=== PATIENT | female | born 1935 | race Caucasian/White ===

== ENCOUNTER 2019-11-15 05:40 | Inpatient (IN) | payer MEDICARE, OTHER ==
[2019-11-15] MEDS ORDERED: DIPH,PERTUS(ACELL)TETVAC-LF 0.5 ML VIAL IM ONE (06:10)
--- NOTE | 2019-11-15 06:22 | ED ---
Fall HPI - General Chief Complaint: Fall Stated Complaint: Fall Time Seen by Provider: 11/15/19 06:00 Source: patient, RN notes reviewed Mode of arrival: ambulatory Limitations: no limitations - History of Present Illness Initial Comments: This is an 84-year-old female presents emergency Department chief complaint trip and fall. Patient states she fell getting out of bed. Patient struck her head on a dresser. Patient is unsure when her last tetanus was. Patient has a laceration to the occipital region. Patient denies any blurred vision or focal weakness. Patient reportedly does have some baseline confusion she is at her normal baseline. Patient denies any extremity injury patient states she takes Coumadin she does not remember the last time she had it checked. She states that she took her last dose at 10 PM last night. - Related Data Allergies Allergy/AdvReac Type Severity Reaction Status Date / Time codeine Allergy Unknown Verified 11/15/19 05:56 Review of Systems ROS Statement: Those systems with pertinent positive or pertinent negative responses have been documented in the HPI. ROS Other: All systems not noted in ROS Statement are negative. Past Medical History History of Any Multi-Drug Resistant Organisms: None Reported Smoking Status: Never smoker Past Alcohol Use History: None Reported Past Drug Use History: None Reported General Exam Limitations: no limitations General appearance: alert, in no apparent distress Head exam: Present: atraumatic, normocephalic. Absent: normal inspection (Procedure laceration noted) Eye exam: Present: normal appearance, PERRL, EOMI. Absent: scleral icterus, conjunctival injection, periorbital swelling ENT exam: Present: normal exam, normal oropharynx, mucous membranes moist, TM's normal bilaterally, normal external ear exam Neck exam: Present: normal inspection, full ROM. Absent: tenderness, meningismus, lymphadenopathy Respiratory exam: Present: normal lung sounds bilaterally. Absent: respiratory distress, wheezes, rales, rhonchi, stridor Cardiovascular Exam: Present: regular rate, normal rhythm, normal heart sounds. Absent: systolic murmur, diastolic murmur, rubs, gallop, clicks GI/Abdominal exam: Present: soft, normal bowel sounds. Absent: distended, tenderness, guarding, rebound, rigid Neurological exam: Present: alert, oriented X3, CN II-XII intact Skin exam: Present: warm, dry, intact, normal color. Absent: rash Course Vital Signs 11/15/19 11/15/19 11/15/19 05:42 05:52 07:34 Temperature 98.0 F 98 F Pulse Rate 65 64 Respiratory 16 18 16 Rate Blood Pressure 133/106 149/78 O2 Sat by Pulse 98 97 Oximetry Procedures - Laceration Laceration #1 Consent Obtained: verbal consent Indication: laceration Site: scalp Size (cm): 4 Description: linear Depth: simple, single layer Anesthetic Used: lidocaine 1%, with epi Anesthesia Technique: local infiltration Amount (mls): 5 Pre-repair: wound explored, irrigated extensively, deep structures intact Size of Sutures: other (Dermal davin) Number of Sutures: 7 Patient Tolerated Procedure: well, no complications Medical Decision Making - Medical Decision Making 84-year-old female presented for fall, head injury. Patient CT was obtained of the head and neck. There is a questionable calcified area versus possible bleeding. Patient is neurologically intact and at her normal baseline. We did discuss this with the radiologist and felt that could be constipation. Patient HE WAS CONTACTED. WE ALSO DID DISCUSS CASE WITH SHEET WAS PATIENT WILL BE OBSERVED WITH REPEAT CT IN THE MORNING. Patient will have neuro checks. Patient was given FFP and vitamin K for her Coumadin. - Lab Data Lab Results 11/15/19 Range/Units 06:15 PT 27.0 H (9.0-12.0) sec INR 2.8 H (<1.2) Disposition Clinical Impression: Fall, Scalp laceration, Head injury Disposition: ADMITTED IP TO THIS HOSP Condition: Fair Referrals: Ashtyn Cano MD [Primary Care Provider] - 1-2 days
[2019-11-15 06:29] LABS: INR 2.8 (<1.2)
[2019-11-15] MEDS ORDERED: ACETAMINOPHEN TAB 325 MG TAB PO STA (06:43)
--- NOTE | 2019-11-15 07:47 | CT ---
EXAM: CT Head Without Intravenous Contrast CLINICAL HISTORY: ITS.REASON CT Reason: pain Fall this morning. Laceration to back of head. TECHNIQUE: Axial computed tomography images of the head/brain without intravenous contrast. CTDI is 45.2 mGy and DLP is 943 mGy-cm. This CT exam was performed using one or more of the following dose reduction techniques: automated exposure control, adjustment of the mA and/or kV according to patient size, and/or use of iterative reconstruction technique. COMPARISON: No relevant prior studies available. FINDINGS: Brain: Small hyperdense focus along the anterior falx. Series 201 image 30. May relate to dural thickening and calcifications, as seen elsewhere, however small focus of subdural hematoma at this location not excluded. Enlarged ventricles and sulci consistent with volume loss. Encephalomalacia in bilateral MCA territories. Ventricles: See above. Bones/joints: Unremarkable. No acute fracture. Soft tissues: Right posterior parietal scalp swelling/hematoma. Sinuses: Unremarkable as visualized. No acute sinusitis. Mastoid air cells: Unremarkable as visualized. No mastoid effusion. IMPRESSION: 1. Small hyperdense focus along the anterior falx. May relate to dural thickening and calcifications, as seen elsewhere, however small focus of subdural hematoma at this location not excluded. Correlate with priors if available or consider a follow-up. 2. Right posterior parietal scalp swelling/hematoma. EXAM: CT Cervical Spine Without Intravenous Contrast CLINICAL HISTORY: ITS.REASON CT Reason: pain Fall this morning. Laceration to back of head. TECHNIQUE: Axial computed tomography images of the cervical spine without intravenous contrast. CTDI is 11.7 mGy and DLP is 320.5 mGy-cm. This CT exam was performed using one or more of the following dose reduction techniques: automated exposure control, adjustment of the mA and/or kV according to patient size, and/or use of iterative reconstruction technique. COMPARISON: No relevant prior studies available. FINDINGS: Vertebrae: Unremarkable. No acute fracture. Discs/spinal canal/neural foramina: Multilevel degenerative changes. Mild anterolisthesis of C3 on C4 and C4 on C5. Varying degrees of mild to moderate central canal and foraminal stenoses. There may be severe central canal stenosis at C2-3 where there are degenerative disc changes, facet and ligamentum flavum hypertrophy. Soft tissues: Unremarkable. IMPRESSION: 1. No evidence of acute fracture or malalignment. 2. Multilevel degenerative changes. Query severe central canal stenosis at C2-3 . Correlate and consider MRI if there is further concern. <MYCVCSECTION> Communications: 11/15/19 08:00 Verify Receipt Verified receipt with EMELY Lopez on 11/14 08:02 (-04:00)
[2019-11-15] MEDS ORDERED: PHYTONADIONE 10 MG in SODIUM CHLORIDE 0.9% 50 ML IVPB STA (08:08)
[2019-11-15] MEDS ORDERED: NALOXONE 0.4 MG/ML 1 ML VIAL IV PRN (09:45)
[2019-11-15] MEDS ORDERED: SODIUM CHLORIDE 0.9% 1,000 ML IV SCH (09:45)
[2019-11-15 10:13] LABS: Basophils % (A) 0 %; Eosinophils # (A) 0.2 k/uL (0-0.7); Eosinophils % (A) 2 %; HCT 37.4 % (34.0-46.0); HGB 12.3 gm/dL (11.4-16.0); Lymphocytes # (A) 1.3 k/uL (1.0-4.8); Lymphocytes % (A) 13 %; MCH 29.2 pg (25.0-35.0); MCHC 32.8 g/dL (31.0-37.0); Mean Platelet Volume 8.3; Monocytes # (A) 0.6 k/uL (0-1.0); Monocytes % (A) 6 %; Neutrophils % (A) 78 %; Platelet Count 232 k/uL (150-450); RDW 13.4 % (11.5-15.5); WBC 10.2 k/uL (3.8-10.6)
[2019-11-15 10:20] LABS: Albumin 3.3 g/dL (3.5-5.0); Calcium 9.1 mg/dL (8.4-10.2); Potassium 4.3 mmol/L (3.5-5.1); Total Bilirubin 0.8 mg/dL (0.2-1.3); Total Protein 5.7 g/dL (6.3-8.2)
[2019-11-15 13:26] LABS: INR 1.4 (<1.2); Prothrombin Time 14.2 sec (9.0-12.0)
[2019-11-15] MEDS: ACETAMINOPHEN TAB 325 MG TAB PO PRN (14:23)
[2019-11-15] MEDS ORDERED: PHYTONADIONE 5 MG in SODIUM CHLORIDE 0.9% 50 ML IVPB STA (15:43)
[2019-11-15] MEDS ORDERED: ALBUTEROL NEBULIZED 2.5 MG/3 ML INHALATION PRN (16:14)
[2019-11-15] MEDS ORDERED: guaiFENesin-DM 100-10MG/5ML 10 ML CUP PO PRN (16:14)
[2019-11-15] MEDS ORDERED: NYSTATIN 100,000UNIT/GM CREAM 30 GM TUBE TOPICAL PRN (16:14)
[2019-11-15] MEDS ORDERED: ALPRAZolam 0.25 MG TAB PO PRN (16:18)
--- NOTE | 2019-11-15 17:09 | P.CNNES ---
History of Present Illness Consult date: 11/15/19 Requesting physician: Nancy Lucas Reason for Consult: Subdural hematoma History of Present Illness: Patient is a 84-year-old female with history of dementia, atrial fibrillation on Coumadin, aspirin 81 mg, admitted to the ER after she tripped and fell. She fell getting out of the bed. Patient struck her head on a dresser. Patient states that she was getting up to go potty, when she started falling, grabbed her walker and then down, hitting the back of her head on the dresser. Patient had a laceration to the occipital region. Patient denies any loss of consciousness. There was no tongue bite or loss of control of urine. Patient denied any blurred vision or focal weakness. Patient does have history of bas catherine confusion, which is not any worse. Patient stated that she does fall very occasionally, perhaps couple times a year, due to her "stupidity". She states that when she was sitting in the chair, reaching to get something and went over. She states that "this is what she meant by stupidity". Computed tomography scan of the head showed small hyperdense focus along the anterior falx. May related to dural thickening and calcification as seen elsewhere, however small focus of subdural hematoma at this location not excluded. Correlate with prior films if available. Right posterior parietal scalp swelling/hematoma. CT of the cervical spine showed no evidence of acute fracture or basilar alignment. Multilevel degenerative changes. Very severe central canal stenosis at C2 3. Consider MRI if needed. Patient's INR was 2.8 on arrival. Patient has received vitamin K, and today it is 1.4. Her BUN is 22, creatinine 0.86. Liver functions are normal. CBC normal. Review of Systems Patient denies any pain, problem with the vision, numbness tingling. Denies chest pain shortness of breath wheezing cough. Denies diplopia, loss of vision. She does have significant hearing loss. Denies any abdominal pain nausea vomiting diarrhea. 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 History of Any Multi-Drug Resistant Organisms: None Reported Past Surgical History: Section Additional Past Surgical History / Comment(s): Bilateral cataract surgery, colonoscopy. Past Anesthesia/Blood Transfusion Reactions: No Reported Reaction Additional Past Anesthesia/Blood Transfusion Reaction / Comment(s): Pt believes she had a blood transfusion many years ago and no reaction. Past Psychological History: Depression Additional Psychological History / Comment(s): Pt resides at [facility]. She uses a walker to ambulate. She needs assitance with dressing. She can feed herself. Smoking Status: Never smoker Past Alcohol Use History: None Reported Past Drug Use History: None Reported - Past Family History Father Family Medical History: CVA/TIA Additional Family Medical History / Comment(s): Father of a CVA. Mother Family Medical History: Congestive Heart Failure (CHF) Medications and Allergies Home Medications Medication Instructions Recorded Confirmed Type Acetaminophen Tab [Tylenol Tab] 1,000 mg PO Q6HR PRN 11/15/19 11/15/19 History Albuterol Nebulized [Ventolin 2.5 mg INHALATION RT-QID PRN 11/15/19 11/15/19 History Nebulized] Aspirin EC [Ecotrin Low Dose] 81 mg PO DAILY@69911/15/19 11/15/19 History Atorvastatin [Lipitor] 20 mg PO HS@189911/15/19 11/15/19 History Budesonide/Formoterol Fumarate 2 puff INHALATION RT-BID@07,189911/15/19 11/15/19 History [Symbicort 160-4.5 Mcg Inhaler] Carvedilol [Coreg] 3.125 mg PO BID@07,189911/15/19 11/15/19 History Donepezil [Aricept] 5 mg PO HS@189911/15/19 11/15/19 History Famotidine [Pepcid] 20 mg PO BID@07,189911/15/19 11/15/19 History Furosemide [Lasix] 80 mg PO DAILY@69911/15/19 11/15/19 History Lisinopril [Zestril] 5 mg PO DAILY@69911/15/19 11/15/19 History Nystatin 100,000Unit/gm Cream 1 applic TOPICAL BID PRN 11/15/19 11/15/19 History [Mycostatin Cream] Oxybutynin ER [Ditropan Xl] 10 mg PO HS@1900 11/15/19 11/15/19 History Pramipexole [Mirapex] 1 mg PO HS@1900 11/15/19 11/15/19 History Tussin Dm 10 ml PO Q4H PRN 11/15/19 11/15/19 History Warfarin [Coumadin] 2.5 mg PO SUTUWEFRSA@1900 11/15/19 11/15/19 History Warfarin [Coumadin] 5 mg PO MOTH@1900 11/15/19 11/15/19 History Allergies Allergy/AdvReac Type Severity Reaction Status Date / Time codeine Allergy Unknown Verified 11/15/19 05:56 Physical Examination - Vital Signs Vital Signs: Vital Signs Temp Pulse Pulse Resp BP BP Pulse Ox 11/15/19 14:57 97.9 F 78 16 131/65 97 11/15/19 11:20 97.3 F L 70 16 151/77 98 11/15/19 10:55 97.3 F L 70 16 151/77 98 11/15/19 10:25 98 F 75 16 139/70 11/15/19 10:15 98 F 85 16 143/68 11/15/19 09:45 97.8 F 69 16 143/68 97 11/15/19 07:34 98 F 64 16 149/78 97 11/15/19 05:52 65 18 133/106 98 11/15/19 05:42 98.0 F 16 Intake and Output 11/15/19 11/15/19 11/15/19 06:59 14:59 22:59 Intake Total 301 Balance 301 Intake: Blood Product 301 Ffp 24 Cpd Unit 301 [id number] Other: # Voids 1 Weight 72.575 kg 72.575 kg On examination patient is an elderly female, in no distress. Patient is alert and awake, fully oriented. She knows it is November and the year is 2019 and that she is in [facility] in [facility]. Knows name of the current president. Her speech and language functions are normal. She is very hard of hearing. On cranial nerve examination pupils are round and reacting to light, visual wilkinson are full to confrontation, extraocular muscles intact with no nystagmus. Face is symmetric and tongue protrudes the midline. Palatal elevation and sensation normal. On muscle strength testing patient has bilateral shoulder weakness, right more than left, likely related to arthritis, although patient denies any pain in the shoulders. On muscle strength testing the biceps, triceps and chopper feeder is normal. In the lower extremities hip flexion is 5 to 5-bilaterally. Knee extension is normal. Ankle dorsiflexion 5/5=, toe e xtension 4+5-/3-3+ inversion 5/5, Perronei, 5/4+ reflexes are diminished and plantars are flat. Sensory touch is equal. Patient has some ataxia for [id number] on either side. Tone and bulk of muscles normal. There is possible carotid bruit bilaterally. S1 and S2 audible, peripheral pulses p resent no edema. Results - Laboratory Findings CBC and BMP: 11/15/19 08:26 11/15/19 08:26 Abnormal Lab Findings: Abnormal Labs 11/15/19 11/15/19 11/15/19 06:15 08:26 08:26 Neutrophils # 8.0 H PT 27.0 H INR 2.8 H Chloride 108 H BUN 22 H Total Protein 5.7 L Albumin 3.3 L 11/15/19 12:32 Neutrophils # PT 14.2 H INR 1.4 H Chloride BUN Total Protein Albumin Assessment and Plan Assessment: * 84-year-old female, admitted with a fall of unclear etiology, while trying to get up to go to bathroom, suffering from laceration in the occipital region. CT head showed possibility of anterior falx subdural hematoma. No mass effect or midline shift. * Patient has mild distal left leg weakness, in peroneal distribution, which may predispose her to tripping/falling. * Atrial fibrillation, on anticoagulation with Coumadin. INR was therapeutic 2.8 on arrival. Status post administration of vitamin K for possible SDH. Plan: * We will repeat computed tomography scan of head in the morning, to follow-up on possible subdural hematoma. * CT of the cervical spine revealed evidence of possible cervical spinal stenosis. We will check MRI of the cervical spine. * Carotid Doppler to rule out carotid stenosis. * Coumadin has been held because of possibility of subdural hematoma. We will clear neurologically for anticoagulation, if the subdural hematoma remains stable. * We will check B12, folate and TSH.
--- NOTE | 2019-11-15 17:30 | XR ---
EXAMINATION TYPE: XR chest 1V portable DATE OF EXAM: 11/15/2019 CLINICAL HISTORY: Recent fall injury with CHF and weakness. TECHNIQUE: Single AP portable frontal upright view of the chest is obtained. COMPARISON: Prior chest x-ray November 29, 2011. FINDINGS: There is chronic parenchymal change without suspicious new focal air space opacity, pleura l effusion, or pneumothorax seen. The cardiac silhouette size remains enlarged without atrophic hankins ge in the thoracic aorta. The osseous structures remain demineralized. High riding right humeral he ad suggests chronic rotator cuff tear. Degenerative changes bilateral shoulders are seen. IMPRESSION: Chronic parenchymal changes and cardiomegaly without acute pulmonary process.
[2019-11-15] MEDS: LISINOPRIL 5 MG TAB PO SCH (17:55)
[2019-11-15] MEDS: FUROSEMIDE 80 MG TAB PO SCH (17:55)
--- NOTE | 2019-11-15 18:04 | HP ---
HISTORY AND PHYSICAL DATE OF SERVICE: 11/15/2019 CHIEF COMPLAINT: Fall and scalp injury. HISTORY OF PRESENT ILLNESS: This 84-year-old woman with a past medical history of multiple medical problems including atrial fibrillation asthma, CVA, TIA, dementia, GERD, hypertension, DJD, depression, being followed by [facility] in the outpatient, apparently trying to get up from the bed today this morning and the patient fell down hitting the dresser and sustained injury on the scalp and injury on the back which was associated with significant bleeding. Patient came to [facility]. CT scan of the head showed small hyperdense focus along the anterior falx, may be related to dural thickening calcification but a small focus subdural hematoma cannot be ruled out. The right posterior parietal scalp swelling and hematoma was also noted. The ER physician called the legal guardian who was not very insistent on transferring the patient and the patient was transferred with neurology consultation at this time. Neurology has been consulted and recommended continue with neuro checks and repeat CT scan tomorrow morning. Otherwise, the patient also had significant bleeding and INR was elevated. The patient was given vitamin K 10 mg IV and fresh frozen plasma and currently still there is soaking of the blood in the bedsheet, so I recommended repeat INR which is 1.4, and another dose of vitamin K and as well as fresh frozen plasma is also recommended. There is no history of any fever, rigors. No history of headache, loss of consciousness, seizures at this time. PAST MEDICAL HISTORY: Atrial fibrillation, asthma, CVA, TIA, dementia, GERD, hypertension, hyperlipidemia, history of depression. HOME MEDICATIONS: 1. Tylenol p.r.n. 2. Tussin p.r.n. 3. Nystatin 1 application b.i.d. p.r.n. 4. Coumadin 5 mg Friday and . 5. Ventolin 2.5 mg q.i.d. p.r.n. 6. Coumadin 2.5 mg Friday, Friday, Friday, Friday, Friday. 7. Symbicort 2 puffs b.i.d. 8. Mirapex 1 gm q.h.s. 9. Ditropan XL 10 mg q.h.s. 10.Zestril 5 mg p.o. daily. 11.Lasix 80 mg p.o. daily. 12.Pepcid 20 mg p.o. b.i.d. 13.Aricept 5 mg q.h.s. 14.Coreg 3.125 mg p.o. b.i.d. 15.Lipitor 20 mg q.h.s. 16.Ecotrin 81 mg p.o. daily. ALLERGIES: CODEINE. FAMILY HISTORY: History of CVA and TIA in the family. SOCIAL HISTORY: No history of smoking. No history of alcohol intake. REVIEW OF SYSTEMS: ENT As mentioned earlier. CARDIOVASCULAR No angina or palpitations. RESPIRATORY No cough, no hemoptysis. GI No nausea, vomiting, or diarrhea. No dysuria. NERVOUS As mentioned earlier. ALLERGY/IMMUNOLOGY No asthma or hayfever. MUSCULOSKELETAL As mentioned earlier. HEMATOLOGY/ONCOLOGY As mentioned earlier. ENDOCRINE As mentioned earlier. SKIN Negative. CONSTITUTIONAL As mentioned earlier. PSYCHIATRY As mentioned earlier. PHYSICAL EXAMINATION: Alert and oriented x3. Pulse 78, blood pressure 130/60, respiration 16, temperature 97.9, pulse ox 97% on room air. HEENT: Conjunctivae normal. Oral mucosa moist. NECK: No jugular venous distention. No lymph node enlargement. CARDIOVASCULAR: S1, S2. RESPIRATORY: Diminished breath sounds at the bases. No rhonchi, no crackles. ABDOMEN: Soft, nontender. No mass palpable. LEGS: No edema, no swelling. NERVOUS SYSTEM: Higher functions mentioned earlier. Moves all four limbs. No focal deficits. LYMPHATICS: No lymph node in neck or axilla. SKIN: No rash. JOINTS: No active deforming arthropathy. LABS: WBC 10.2, hemoglobin 12.3, and INR is 2.8 and 1.4. Sodium 130 potassium 4.3. The BUN is 22, creatinine 0.86. ASSESSMENT: 1. Fall and scalp injury and possible mild acute subdural hematoma, possibly dural thickening or calcification. 2. Coumadin monitoring and scalp bleeding. 3. History of atrial fibrillation. 4. History of asthma. 5. Chest pain, angina. 6. History of cerebrovascular accident, transient ischemic attack. 7. Dementia. 8. Gastroesophageal reflux disease. 9. Hypertension. 10.Hyperlipidemia. 11.History of degenerative joint disease. 12.History of cerebrovascular accident with some right-sided weakness. 13.History of overactive bladder. 14.History of bilateral cataracts. 15.History of depression. 16.FULL CODE. RECOMMENDATION: In this 84-year-old woman who presented with multiple complex medical issues, at this time I recommend to continue current medications. As mentioned earlier, we will monitor PT, INR closely and 2nd dose of vitamin K and FFP has been recommended. Neurology consultation. Repeat CT scan in the morning. Neuro checks closely. Neurovascular workup. Otherwise, continue the rest of medications. Hold antiplatelet agents and anticoagulants. The prognosis is extremely guarded because of multiple complex medical issues. Further recommendations to follow and the patient remains full code. Guarded prognosis. Further recommendations to follow. MMODL / IJN: [id number] /
--- NOTE | 2019-11-15 18:32 | US ---
EXAMINATION TYPE: US carotid duplex BILAT DATE OF EXAM: 11/15/2019 COMPARISON: NONE CLINICAL HISTORY: Carotid bruit, falls. headache, falls, bruit EXAM MEASUREMENTS: RIGHT: Peak Systolic Velocity (PSV) cm/sec ----- Right CCA: 68.6 ----- Right ICA: 151.2 ----- Right ECA: 149.6 ICA/CCA ratio: 2.2 RIGHT: End Diastole cm/sec ----- Right CCA: 15.4 ----- Right ICA: 23.6 ----- Right ECA: 12.3 LEFT: Peak Systolic Velocity (PSV) cm/sec ----- Left CCA: 37.4 ----- Left ICA: 77.6 ----- Left ECA: 80.9 ICA/CCA ratio: 2.1 LEFT: End Diastole cm/sec ----- Left CCA: 13.2 ----- Left ICA: 30.3 ----- Left ECA: 0.0 VERTEBRALS (direction of flow): Right Vertebral: Antegrade Left Vertebral: Antegrade Rhythm: Normal Suboptimal study due to patient's large body habitus. Fairly severe plaque right carotid bulb level p resent on grayscale images with more mild to moderate plaquing left carotid bulb. Increased peak syst olic velocity right internal and external carotid artery with abnormal ratio. IMPRESSION: Asymmetric swdzchcu-ad-dyuiam right plaque with elevated peak systolic velocity and rati o, significant stenosis estimated 50-69% proximal right internal carotid artery cannot be excluded. F urther investigation with CTA or MRA of the neck is advised to better evaluate and characterize. Criteria for Assigning % of Stenosis / Diameter reduction (Estimation based on the indirect measurements of the internal carotid artery velocities (ICA PSV). 1. Normal (no stenosis)=ICA PSV < 125 cm/s: ratio < 2.0: ICA EDV<40 cm/s. 2. Less than 50% stenosis=ICA PSV < 125 cm/s: ratio < 2.0: ICA EDV<40 cm/s. 3. 50 to 69% stenosis=ICA PSV of 125 to 230 cm/s: ration 2.0 ? 4.0: ICA EDV 40-100 cm/s. 4. Greater than 70% stenosis to near occlusion= ICA PSV > 230 cm/s: ratio > 4.0: ICA EDV > 100 cm/s. 5. Near occlusion= ICA PSV velocities may be low or undetectable: variable ratio and ICA EDV. 6. Total occlusion=unable to detect flow.
[2019-11-15] MEDS: OXYBUTYNIN 10 MG TAB.ER.24 PO SCH (19:10)
[2019-11-15] MEDS: PRAMIPEXOLE 1 MG TAB PO SCH (19:10)
[2019-11-15] MEDS: CARVEDILOL 3.125 MG TAB PO SCH (19:10)
[2019-11-15] MEDS: DONEPEZIL 5 MG TAB PO SCH (19:10)
[2019-11-15] MEDS: ATORVASTATIN 20 MG TAB PO SCH (19:10)
[2019-11-15] MEDS: SYMBICORT 160-4.5 MCG INHALER INHALATION SCH (20:59)
[2019-11-16 01:39] LABS: Folate, Serum 16.4 ng/mL
[2019-11-16] MEDS: FUROSEMIDE 80 MG TAB PO SCH (05:49)
[2019-11-16] MEDS: LISINOPRIL 5 MG TAB PO SCH (05:49)
[2019-11-16] MEDS: CARVEDILOL 3.125 MG TAB PO SCH ×2 (05:49→21:17)
[2019-11-16 06:38] LABS: Appearance,Urine Turbid (Clear); Bacteria,Urine Few /hpf; Bilirubin,Urine Negative (Negative); Blood,Urine Small (Negative); Color,Urine Yellow; Glucose,Urine (UA) Negative (Negative); Ketones,Urine Negative (Negative); Leukocyte Esterase,Urine Large (Negative); Nitrite,Urine Positive (Negative); Protein,Urine 1+ (Negative); RBC,Urine 45 /hpf (0-5); Squamous Epithelial Cell,Urine 4 /hpf (0-4); Urobilinogen,Urine <2.0 mg/dL (<2.0); WBC,Urine >182 /hpf (0-5)
[2019-11-16] MEDS: PANTOPRAZOLE 40 MG TABLET PO SCH (08:28)
[2019-11-16] MEDS: SYMBICORT 160-4.5 MCG INHALER INHALATION SCH ×2 (09:18→22:09)
[2019-11-16 09:27] LABS: Basophils % (A) 0 %; Eosinophils # (A) 0.1 k/uL (0-0.7); Eosinophils % (A) 2 %; HGB 10.3 gm/dL (11.4-16.0); Lymphocytes # (A) 1.5 k/uL (1.0-4.8); Lymphocytes % (A) 22 %; MCH 29.1 pg (25.0-35.0); MCHC 32.3 g/dL (31.0-37.0); Mean Platelet Volume 7.4; Monocytes # (A) 0.4 k/uL (0-1.0); Monocytes % (A) 5 %; Neutrophils # (A) 4.9 k/uL (1.3-7.7); Neutrophils % (A) 70 %; Platelet Count 226 k/uL (150-450); RBC 3.55 m/uL (3.80-5.40); RDW 13.5 % (11.5-15.5)
[2019-11-16 09:41] LABS: Potassium 4.2 mmol/L (3.5-5.1)
--- NOTE | 2019-11-16 09:44 | CT ---
EXAMINATION TYPE: CT brain wo con DATE OF EXAM: 11/16/2019 COMPARISON: 11/15/2019 CT brain and cervical spine HISTORY: Patient poor historian. Altered mental status. CT DLP: 1054.2 mGycm Automated exposure control for dose reduction was used. TECHNIQUE: CT scan of the head is performed without contrast. FINDINGS: Biparietal encephalomalacia from prior infarcts are seen. There is a posterior right vanesa etal scalp hematoma measuring 1 cm in greatest thickness with overlying davin. There is no acute in tracranial hemorrhage or midline shift identified. There is diffuse ventricular and sulcal prominence consistent with diffuse age-related cerebral atrophy. There is low-attenuation in the periventricul ar white matter consistent with chronic small vessel ischemic change. The globes are intact and the visualized sinuses are clear. IMPRESSION: 1. No acute intracranial hemorrhage or midline shift. The previously seen punctate focus of possible of subdural hemorrhage has resolved. 2. Biparietal encephalomalacia from prior infarcts. There is diffuse age-related cerebral atrophy and chronic small vessel ischemic change noted. 3. Right posterior parietal scalp hematoma measuring 1.0 cm in greatest thickness with overlying skin davin.
[2019-11-16 09:46] LABS: Partial Thromboplastin Time 23.8 sec (22.0-30.0); Prothrombin Time 10.2 sec (9.0-12.0)
--- NOTE | 2019-11-16 11:19 | P.CRDCN ---
History of Present Illness History of present illness: HISTORY OF PRESENTING ILLNESS This is a pleasant 84-year-old female past medical history significant for CVA with right-sided weakness, chronic a-fib on coumadin, dementia, hyperte nsion and dyslipidemia. 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 She does have some baseline confusion. Information is obtained from the medical record and nursing staff. She lives at an [facility] home. She states she got up out of bed yesterday morning and Oh she was on the ground. She states she did not pass out. She denies feeling dizzy or lightheaded prior to falling. She denies chest pain shortness of breath or palpitations. CT imaging of the brain reveals small hyperdense focus along the anterior falx related to dural thickening and calcifications small focus of subdural hematoma at this location is not entirely excluded. Repeat CT of the brain this morning reveals no acute intracranial hemorrhage or midline shift the previously seen area of possible hemorrhage has resolved. Coumadin and aspirin have been held since admission. The patient is seen and examined sitting up in no acute distress. She denies symptoms of headache, chest pain, dizziness, shortness of breath or palpitations. No EKG obtained on admission. Chest x-ray on admission reveals chronic parenchymal changes and cardiomegaly with no acute cardiopulmonary process. Laboratory data reviewed, WBC 7, hemoglobin on admission 12.3 repeat today 10.3, platelets 226, INR on admission 2.8 after vitamin K administration this morning 1.0, sodium 140, potassium 4.2, creatinine 0.89. Current daily cardiac medications include aspirin 81 mg daily, Coumadin, atorvastatin 20 mg at bedtime, carvedilol 3.125 mg twice a day, Lasix 80 mg daily and lisinopril 5 mg daily. REVIEW OF SYSTEMS At the time of my exam: CONSTITUTIONAL: Denies fever or chills. CARDIOVASCULAR: Denies chest pain, shortness of breath, orthopnea, PND or palpitations. RESPIRATORY: Denies cough. GASTROINTESTINAL: Denies abdominal pain, diarrhea, constipation, nausea or vomiting. MUSCULOSKELETAL: Denies myalgias. NEUROLOGIC: Denies numbness, tingling or weakness. ENDOCRINE: Denies fatigue, weight change, polydipsia or polyurina. GENITOURINARY: Denies burning, hematuria or urgency with micturation. HEMATOLOGIC: Denies history of anemia or bleeding. PHYSICAL EXAMINATION Blood pressure 152/61 heart rate 79 afebrile and maintaining oxygen saturation on room air. CONSTITUTIONAL: No apparent distress. HEENT: Head is normocephalic. Pupils are equal, round. Sclerae anicteric. Mucous membranes of the mouth are moist. No JVD. No carotid bruit. CHEST EXAMINATION: Lungs are clear to auscultation. No chest wall tenderness is noted on palpation or with deep breathing. HEART EXAMINATION: Irregular rate and rhythm. S1, S2 heard. Systolic ejection murmur at the left sternal border, gallops or rub. ABDOMEN: Soft, nontender. Positive bowel sounds. EXTREMITIES: 2+ peripheral pulses, no lower extremity edema and no calf tenderness. NEUROLOGIC EXAMINATION: Patient is awake, alert and oriented x3. ASSESSMENT Fall from standing, sounds orthostatic in nature. No LOC Subdural hematoma noted on initial admission CT repeat today shows resolution Chronic atrial fibrillation on coumadin History of CVA Hypertension Dyslipidemia Dementia PLAN Obtain 2D echocardiogram and doppler study to assess cardiac structure and function. Agree with discontinuation of coumadin and would recommend not resuming on discharge. No indication for aspirin from a cardiac perspective. Obtain baseline EKG for review. Thank you kindly for this consultation. Nurse Practitioner note has been reviewed, I agree with a documented findings and plan of care. Patient was seen and examined. Past Medical History Past Medical History: Atrial Fibrillation, Asthma, Chest Pain / Angina, CVA/TIA, Dementia, GERD/Reflux, Hyperlipidemia, Hypertension, Osteoarthritis (OA), Vascular Disorder Additional Past Medical History / Comment(s): 2005 CVA with some R sided weakness arm/leg, varicose veins, incontinence of urine/stool, overactive bladder. History of Any Multi-Drug Resistant Organisms: None Reported Past Surgical History: Section Additional Past Surgical History / Comment(s): Bilateral cataract surgery, colonoscopy. Past Anesthesia/Blood Transfusion Reactions: No Reported Reaction Additional Past Anesthesia/Blood Transfusion Reaction / Comment(s): Pt believes she had a blood transfusion many years ago and no reaction. Past Psychological History: Depression Additional Psychological History / Comment(s): Pt resides at [facility]. She uses a walker to ambulate. She needs assitance with dressing. She can feed herself. Smoking Status: Never smoker Past Alcohol Use History: None Reported Past Drug Use History: None Reported - Past Family History Father Family Medical History: CVA/TIA Additional Family Medical History / Comment(s): Father of a CVA. Mother Family Medical History: Congestive Heart Failure (CHF) Medications and Allergies Home Medications Medication Instructions Recorded Confirmed Type Acetaminophen Tab [Tylenol Tab] 1,000 mg PO Q6HR PRN 11/15/19 11/15/19 History Albuterol Nebulized [Ventolin 2.5 mg INHALATION RT-QID PRN 11/15/19 11/15/19 History Nebulized] Aspirin EC [Ecotrin Low Dose] 81 mg PO DAILY@69911/15/19 11/15/19 History Atorvastatin [Lipitor] 20 mg PO HS@189911/15/19 11/15/19 History Budesonide/Formoterol Fumarate 2 puff INHALATION RT-BID@699,189911/15/19 11/15/19 History [Symbicort 160-4.5 Mcg Inhaler] Carvedilol [Coreg] 3.125 mg PO BID@699,189911/15/19 11/15/19 History Donepezil [Aricept] 5 mg PO HS@189911/15/19 11/15/19 History Famotidine [Pepcid] 20 mg PO BID@07,189911/15/19 11/15/19 History Furosemide [Lasix] 80 mg PO DAILY@69911/15/19 11/15/19 History Lisinopril [Zestril] 5 mg PO DAILY@0711/15/19 11/15/19 History Nystatin 100,000Unit/gm Cream 1 applic TOPICAL BID PRN 11/15/19 11/15/19 History [Mycostatin Cream] Oxybutynin ER [Ditropan Xl] 10 mg PO HS@189911/15/19 11/15/19 History Pramipexole [Mirapex] 1 mg PO HS@189911/15/19 11/15/19 History Tussin Dm 10 ml PO Q4H PRN 11/15/19 11/15/19 History Warfarin [Coumadin] 2.5 mg PO SUTUWEFRSA@189911/15/19 11/15/19 History Warfarin [Coumadin] 5 mg PO MOTH@189911/15/19 11/15/19 History Allergies Allergy/AdvReac Type Severity Reaction Status Date / Time codeine Allergy Unknown Verified 11/15/19 05:56 Physical Exam Vitals: Vital Signs Temp Pulse Pulse Resp BP BP Pulse Ox 11/16/19 08:00 20 11/16/19 06:00 97.9 F 79 20 152/61 95 11/15/19 20:30 98.6 F 85 22 107/56 95 11/15/19 19:25 98.1 F 72 18 112/72 98 11/15/19 19:00 98.0 F 72 17 110/72 98 11/15/19 18:27 98.5 F 72 15 113/60 95 11/15/19 18:17 98.5 F 72 15 113/70 11/15/19 18:12 98.5 F 72 15 113/70 95 11/15/19 17:42 98.5 F 77 18 102/58 94 L 11/15/19 17:32 98.5 F 62 18 89/56 11/15/19 14:57 97.9 F 78 16 131/65 97 11/15/19 11:20 97.3 F L 70 16 151/77 98 11/15/19 10:55 97.3 F L 70 16 151/77 98 11/15/19 10:25 98 F 75 16 139/70 Intake and Output 11/15/19 11/16/19 11/16/19 22:59 06:59 14:59 Intake Total 0 Balance 0 Intake: Blood Product 0 Ffp 24 Cpd Unit 0 [id number] Other: Voiding Method Bedside Commode # Voids 1 2 Results 11/16/19 08:58 11/16/19 08:58 Cardiac Enzymes 11/15/19 Range/Units 08:26 AST 24 (14-36) U/L Coagulation 11/15/19 11/16/19 Range/Units 12:32 08:58 PT 14.2 H 10.2 (9.0-12.0) sec APTT 23.8 (22.0-30.0) sec CBC 11/16/19 Range/Units 08:58 WBC 7.0 (3.8-10.6) k/uL RBC 3.55 L (3.80-5.40) m/uL Hgb 10.3 L (11.4-16.0) gm/dL Hct 32.0 L (34.0-46.0) % Plt Count 226 (150-450) k/uL Comprehensive Metabolic Panel 11/15/19 11/16/19 Range/Units 08:26 08:58 Sodium 139 140 (137-145) mmol/L Potassium 4.3 4.2 (3.5-5.1) mmol/L Chloride 108 H 108 H (98-107) mmol/L Carbon Dioxide 25 24 (22-30) mmol/L BUN 22 H 17 (7-17) mg/dL Creatinine 0.86 0.89 (0.52-1.04) mg/dL Glucose 95 158 H (74-99) mg/dL Calcium 9.1 9.0 (8.4-10.2) mg/dL AST 24 (14-36) U/L ALT 17 (4-34) U/L Alkaline Phosphatase 70 (38-126) U/L Total Protein 5.7 L (6.3-8.2) g/dL Albumin 3.3 L (3.5-5.0) g/dL Current Medications Generic Name Dose Route Start Last Admin Trade Name Freq PRN Reason Stop Dose Admin Acetaminophen 650 mg 11/15/19 09:45 11/15/19 14:23 Tylenol Tab PO 650 mg Q6HR PRN Administration Mild Pain or Fever > 100.5 Albuterol Sulfate 2.5 mg 11/15/19 16:14 Ventolin Nebulized INHALATION RT-QID PRN Shortness Of Breath Alprazolam 0.25 mg 11/15/19 16:18 Xanax PO TID PRN Anxiety Atorvastatin Calcium 20 mg 11/15/19 19:00 11/15/19 19:10 Lipitor PO 20 mg HS@1900 VLADIMIR Administration Budesonide/Formoterol Fumarate 2 puff 11/15/19 19:00 11/16/19 09:18 Symbicort 160-4.5 Mcg Inhaler INHALATION 2 puff RT-BID@699,1899 VLADIMIR Administration Carvedilol 3.125 mg 11/15/19 19:00 11/16/19 05:49 Coreg PO 3.125 mg BID@0700,1900 VLADIMIR Administration Donepezil HCl 5 mg 11/15/19 19:00 11/15/19 19:10 Aricept PO 5 mg HS@1900 VLADIMIR Administration Furosemide 80 mg 11/15/19 16:14 11/16/19 05:49 Lasix PO 80 mg DAILY@0700 VLADIMIR Administration Guaifenesin/Dextromethorphan 10 ml 11/15/19 16:14 Robitussin Dm PO Q4H PRN Cough Lisinopril 5 mg 11/15/19 16:14 11/16/19 05:49 Zestril PO 5 mg DAILY@0700 VLADIMIR Administration Naloxone HCl 0.2 mg 11/15/19 09:45 Narcan IV Q2M PRN Opioid Reversal Nystatin 1 applic 11/15/19 16:14 Mycostatin Cream TOPICAL BID PRN Rash Oxybutynin Chloride 10 mg 11/15/19 19:00 11/15/19 19:10 Ditropan Xl PO 10 mg HS@1900 VLADIMIR Administration Pantoprazole Sodium 40 mg 11/16/19 07:30 11/16/19 08:28 Protonix PO 40 mg [id number] VLADIMIR Administration Pramipexole Dihydrochloride 1 mg 11/15/19 19:00 11/15/19 19:10 Mirapex PO 1 mg HS@1900 VLADIMIR Administration Intake and Output 11/15/19 11/16/19 11/16/19 22:59 06:59 14:59 Intake Total 0 Balance 0 Intake: Blood Product 0 Ffp 24 Cpd Unit 0 [id number] Other: Voiding Method Bedside Commode # Voids 1 2 11/16/19 08:58 11/16/19 08:58
--- NOTE | 2019-11-16 12:48 | ECHOF ---
Referral Reason:afib, fall MEASUREMENTS -------- HEIGHT: 165.1 cm WEIGHT: 72.6 kg BP: 152/61 RVIDd: 2.9 cm (< 3.3) IVSd: 1.5 cm (0.6 - 1.1) LVIDd: 3.8 cm (3.9 - 5.3) LVPWd: 1.6 cm (0.6 - 1.1) IVSs: 1.7 cm LVIDs: 2.6 cm LVPWs: 1.6 cm LAESV Index (A-L): 46.61 ml/m Ao Diam: 3.5 cm (2.0 - 3.7) AV Cusp: 1.5 cm (1.5 - 2.6) MV EXCURSION: 13.838 mm (> 18.000) MV EF SLOPE: 38 mm/s (70 - 150) EPSS: 0.1 cm MV E Nino: 1.45 m/s MV DecT: 264 ms MV A Nino: 1.12 m/s MV E/A Ratio: 1.30 RAP: 5.00 mmHg RVSP: 35.42 mmHg FINDINGS -------- Sinus rhythm. This was a technically adequate study. The left ventricular size is normal. There is moderate concentric left ventricular hypertrophy. O verall left ventricular systolic function is normal with, an EF between 55 - 60 %. Left ventricular fillimg pressure cannot be estimated due to severe mitral annular calcification. The right ventricle is normal in size. LA is moderately dilated 34-39 ml/m2 The right atrial size is normal. Interatrial and interventricular septum intact. There is moderate aortic valve sclerosis. There is no evidence of aortic regurgitation. There is no evidence of aortic stenosis. Severe mitral annular calcification present. Moderate mitral regurgitation is present. Mild tricuspid regurgitation present. There is mild pulmonary hypertension. The right ventricular systolic pressure, as measured by Doppler, is 35.42mmHg. Trace/mild (physiologic) pulmonic regurgitation. The aortic root size is normal. Normal inferior vena cava with normal inspiratory collapse consistent with estimated right atrial pre ssure of 5 mmHg. There is no pericardial effusion. CONCLUSIONS -------- 1. Sinus rhythm. 2. This was a technically adequate study. 3. The left ventricular size is normal. 4. There is moderate concentric left ventricular hypertrophy. 5. Overall left ventricular systolic function is normal with, an EF between 55 - 60 %. 6. Left ventricular fillimg pressure cannot be estimated due to severe mitral annular calcification. 7. The right ventricle is normal in size. 8. LA is moderately dilated 34-39 ml/m2 9. The right atrial size is normal. 10. Interatrial and interventricular septum intact. 11. There is moderate aortic valve sclerosis. 12. There is no evidence of aortic regurgitation. 13. There is no evidence of aortic stenosis. 14. Severe mitral annular calcification present. 15. Moderate mitral regurgitation is present. 16. Mild tricuspid regurgitation present. 17. There is mild pulmonary hypertension. 18. The right ventricular systolic pressure, as measured by Doppler, is 35.42mmHg. 19. Trace/mild (physiologic) pulmonic regurgitation. 20. The aortic root size is normal. 21. Normal inferior vena cava with normal inspiratory collapse consistent with estimated right atrial pressure of 5 mmHg. 22. There is no pericardial effusion. DIE ENGRAVER: Chelly Go RDCS
--- NOTE | 2019-11-16 14:01 | P.PN ---
Subjective Progress Note Date: 11/16/19 Patient offers no new complaints. Denies headache. Objective - Vital Signs Vital signs: Vital Signs Temp 97.9 F 11/16/19 06:00 Pulse 79 11/16/19 06:00 Resp 20 11/16/19 08:00 BP 152/61 11/16/19 06:00 Pulse Ox 95 11/16/19 06:00 Intake & Output 11/15/19 11/16/19 11/16/19 18:59 06:59 18:59 Intake Total 301 0 Balance 301 0 Weight 72.575 kg Intake: Blood Product 301 0 Ffp 24 Cpd Unit 0 0 [id number] Ffp 24 Cpd Unit 301 [id number] Other: Voiding Method Bedside Commode # Voids 1 2 - Exam No change. - Labs CBC & Chem 7: 11/16/19 08:58 11/16/19 08:58 Labs: Abnormal Lab Results - Last 24 Hours (Table) 11/16/19 11/16/19 11/16/19 Range/Units 05:40 08:58 08:58 RBC 3.55 L (3.80-5.40) m/uL Hgb 10.3 L (11.4-16.0) gm/dL Hct 32.0 L (34.0-46.0) % Chloride 108 H (98-107) mmol/L Glucose 158 H (74-99) mg/dL Urine Appearance Turbid H (Clear) Urine Protein 1+ H (Negative) Urine Blood Small H (Negative) Urine Nitrite Positive H (Negative) Ur Leukocyte Esterase Large H (Negative) Urine RBC 45 H (0-5) /hpf Urine WBC >182 H (0-5) /hpf Urine WBC Clumps Many H (None) /hpf Urine Bacteria Few H (None) /hpf Assessment and Plan Assessment: * 84-year-old female, admitted with a fall of unclear etiology, while trying to get up to go to bathroom, suffering from laceration in the occipital region. CT head showed possibility of anterior falx subdural hematoma. No mass effect or midline shift. * Patient has mild distal left leg weakness, in peroneal distribution, which may predispose her to tripping/falling. * Atrial fibrillation, on anticoagulation with Coumadin. INR was therapeutic 2 .8 on arrival. Status post administration of vitamin K for possible SDH. Plan: * Repeat computed tomography scan of head showed no acute intracranial hemorrhage or midline shift. The previously seen punctate focus of possible subdural hemorrhage has resolved. May resume anticoagulation, due to risk of ischemic stroke from atrial fibrillation. * CT of the cervical spine revealed evidence of possible cervical spinal stenosis. Await MRI of the cervical spine. * Carotid Doppler revealed asymmetric moderate to severe right plaque with elevated peak systolic velocity and ratio, significant stenosis estimated 50- 69%, proximal right ICA cannot be excluded. Further investigation with CTA or MRA commended. This is clinically asymptomatic at this time. May follow up with the vascular surgeon as an outpatient. * B12 231, folate 16.4. We will start B12 replacement.
[2019-11-16] MEDS: ACETAMINOPHEN TAB 325 MG TAB PO PRN (14:12)
[2019-11-16] MEDS: CYANOCOBALAMIN 1,000 MCG/ML 1 ML VIAL IM SCH (14:37)
[2019-11-16] MEDS: OXYBUTYNIN 10 MG TAB.ER.24 PO SCH (21:17)
[2019-11-16] MEDS: PRAMIPEXOLE 1 MG TAB PO SCH (21:17)
[2019-11-16] MEDS: ATORVASTATIN 20 MG TAB PO SCH (21:17)
[2019-11-16] MEDS: DONEPEZIL 5 MG TAB PO SCH (21:19)
--- NOTE | 2019-11-16 23:31 | PN ---
PROGRESS NOTE Dr. Boyer. DATE OF SERVICE: 11/16/2019 This 84-year-old woman was admitted with a fall and scalp injury, suspected to have a subdural hematoma initially, but repeat CT scan of the brain was done today. Patient also received vitamin K repeatedly yesterday. Showed bilateral encephalomalacia from prior infarcts and right posterior scalp hematoma was also noted. Other than that, no intracranial abdominal bleeding was noted. The patient was seen by multiple consultants including Cardiology and Neurology. Moderate to severe right plaque with elevated peak velocity was noted in the carotid stenosis. Otherwise a 2D echo with Doppler showed ejection fraction 50-60 percent. Mild to moderate abnormalities also. No chest pain. No palpitations. No fever. PAST MEDICAL HISTORY: Reviewed. REVIEW OF SYSTEMS: Could not be taken the patient is confused. CURRENT MEDICATIONS: Noted and include: 1. Tylenol p.r.n. 2. Ventolin. 3. Xanax. 4. Lipitor. 5. Symbicort. 6. Coreg. 7. Vitamin B12. 8. Aricept. 9. Lasix. 10.Zestril. 11.Narcan. 12.Ditropan XL. 13.Protonix. 14.MiraLAX. 15.Doses reviewed. PHYSICAL EXAM: Patient is conscious, confused. Pulse 63, blood pressure 125/59, respiration 20, temperature 97.8, pulse ox 94% on room air. HEENT: Conjunctivae normal. NECK: No JVD. CARDIOVASCULAR: S1, S2 muffled. RESPIRATORY: Breath sounds diminished in the bases. Scattered rhonchi and crackles. ABDOMEN: Soft, nontender. LEGS are no edema. No swelling. CENTRAL NERVOUS SYSTEM: Diffusely weak. LAB: Investigations at this time shows WBC 7, hemoglobin 10.2, sodium 140, potassium 4.2. UA noted. Possibly UTI. ASSESSMENT: 1. Fall and scalp injury with possible cerebral concussion. 2. No evidence of subdural hematoma. However, dural thickening with calcification suspected. 3. Carotid stenosis bilaterally. 4. Hematoma and wound of the right posterior parietal scalp area. 5. 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 6. Coumadin monitoring. 7. History of atrial fibrillation. 8. History of asthma. 9. Change in mental status, metabolic encephalopathy, acute on chronic. 10.Chest pain, angina. 11.History of cerebrovascular accident, transient ischemic attack. 12.Dementia. 13.Gastroesophageal reflux disease. 14.Hypertension. 15.History of hyperlipidemia. 16.History of cerebrovascular accident with right-sided weakness. 17.History of overactive bladder. 18.History of bilateral cataracts. 19.History of depression. 20.FULL CODE. RECOMMENDATIONS AND DISCUSSION: In this 84-year-old woman who presented with multiple complex medical issues, we will monitor the patient closely. Continue the current medications, management and symptomatic treatment. Otherwise, at this time, there is no evidence of intracranial bleeding at this time. The anticoagulation may be initiated once okayed by Cardiology and Neurology. Otherwise monitor PT, INR closely. The patient has significant wound and hematoma parietal externally also. We will continue to monitor. Carotid ultrasound showed asymmetric moderate severe right plaque with elevated peak systolic velocity with a proximal right internal carotid artery stenosis. We will continue to monitor. Vascular surgery evaluation. Further recommendations to follow. GRECIA / CONG: [id number] /
[2019-11-17] MEDS: LISINOPRIL 5 MG TAB PO SCH (07:27)
[2019-11-17] MEDS: PANTOPRAZOLE 40 MG TABLET PO SCH (07:27)
[2019-11-17] MEDS: FUROSEMIDE 80 MG TAB PO SCH (07:27)
[2019-11-17] MEDS: CARVEDILOL 3.125 MG TAB PO SCH ×2 (07:28→19:56)
[2019-11-17] MEDS: CYANOCOBALAMIN 1,000 MCG/ML 1 ML VIAL IM SCH (07:33)
[2019-11-17] MEDS: SYMBICORT 160-4.5 MCG INHALER INHALATION SCH ×2 (08:59→19:36)
[2019-11-17 10:01] LABS: Basophils % (A) 0 %; Eosinophils # (A) 0.3 k/uL (0-0.7); Eosinophils % (A) 4 %; HCT 32.3 % (34.0-46.0); HGB 10.2 gm/dL (11.4-16.0); Lymphocytes # (A) 1.2 k/uL (1.0-4.8); Lymphocytes % (A) 20 %; MCH 28.8 pg (25.0-35.0); MCHC 31.6 g/dL (31.0-37.0); MCV 91.2 fL (80.0-100.0); Mean Platelet Volume 7.7; Monocytes # (A) 0.3 k/uL (0-1.0); Monocytes % (A) 5 %; Neutrophils # (A) 4.2 k/uL (1.3-7.7); Neutrophils % (A) 69 %; Platelet Count 207 k/uL (150-450); RBC 3.54 m/uL (3.80-5.40); RDW 13.6 % (11.5-15.5); WBC 6.1 k/uL (3.8-10.6)
[2019-11-17 10:18] LABS: INR 0.9 (<1.2); Prothrombin Time 9.7 sec (9.0-12.0)
--- NOTE | 2019-11-17 15:45 | P.PN ---
Subjective Progress Note Date: 11/17/19 Principal diagnosis: This is an 84-year-old female who was recently admitted with a fall and scalp injury suspected to have a subdural hematoma initially a repeat CAT scan shows bilateral encephalomalacia from prior infarcts and right posterior scalp hematoma. No active intracranial bleeding noted. Patient is being monitored closely. Patient continues to be confused. Patient was seen and evaluated by neurology recommending outpatient vascular surgery follow-up. No reports of chest pain, palpitations. Patient is afebrile. Case management and social work are following for possible placement to [facility]. Objective - Vital Signs Vital signs: Vital Signs Temp 97.5 F L 11/17/19 13:05 Pulse 60 11/17/19 13:05 Resp 20 11/17/19 14:35 BP 114/46 11/17/19 13:05 Pulse Ox 96 11/17/19 13:05 Intake & Output 11/16/19 11/17/19 11/17/19 18:59 06:59 18:59 Intake Total 740 Balance 740 Intake: Oral 740 Other: Voiding Method Bedside Commode Bedside Commode Bedside Commode # Voids 3 2 1 # Bowel Movements 1 - Exam Gen: This is a 84-year-old female sitting up in bed awake, well-developed, well- nourished. Temp is 97.5F, pulse is 60, respirations are 20, blood pressure is 114/46, oxygen saturation is 96% on room air. HEENT: Head is atraumatic, normocephalic. Pupils equal, round. Sclerae is anicteric. NECK: Supple. No JVD. No lymphadenopathy. No thyromegaly. LUNGS: Breath sounds diminished at the bases with a few scattered rhonchi and crackles noted. No intercostal retractions. HEART: S1, S2 are muffled ABDOMEN: Soft. Bowel sounds are present. No masses. No tenderness. EXTREMITIES: No pedal edema. No calf tenderness. NEUROLOGICAL: Patient is awake, alert and oriented x0-1. Diffusely weak - Labs CBC & Chem 7: 11/17/19 09:27 11/17/19 09:27 Labs: Abnormal Lab Results - Last 24 Hours (Table) 11/17/19 11/17/19 Range/Units 09: 09:27 RBC 3.54 L (3.80-5.40) m/uL Hgb 10.2 L (11.4-16.0) gm/dL Hct 32.3 L (34.0-46.0) % Chloride 108 H (98-107) mmol/L BUN 19 H (7-17) mg/dL Glucose 156 H (74-99) mg/dL Assessment and Plan Assessment: Fall with scalp injury with possible cerebral concussion No evidence of subdural hematoma. 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 Continue to monitor vital signs and labs closely. Continue with holding anticoagulation. Vascular surgery consult placed although is currently pending at this time. Neurology seen and evaluated the patient recommending possible outpatient vascular surgery consult. Case management and social work are following and working on authorization for [facility] as the family is now agreeable to rehab. Further recommendations to follow. Due to complex medical issues, prognosis is guarded. Possible discharge in 24-48 hours.
[2019-11-17] MEDS: PRAMIPEXOLE 1 MG TAB PO SCH (19:56)
[2019-11-17] MEDS: ATORVASTATIN 20 MG TAB PO SCH (19:56)
[2019-11-17] MEDS: OXYBUTYNIN 10 MG TAB.ER.24 PO SCH (19:56)
[2019-11-17] MEDS: DONEPEZIL 5 MG TAB PO SCH (19:56)
--- NOTE | 2019-11-17 22:48 | CONS ---
CONSULTATION Patient is an 84-year-old white female. Patient has a history of fall at home. Patient had a scalp laceration which was repaired in the emergency room. CT scan of the head and brain shows no evidence of intracranial hemorrhage. The patient has multiple medical conditions, including atrial fibrillation, on Coumadin, history of dementia, history of hypertension, hyperlipidemia. Patient has a history of CVA in the past, about 8 years ago, with no residual neuro deficit. Personal history shows ALLERGY TO CODEINE. No history of smoking. The patient was seen in her room sitting in a chair. Neck is supple, trachea central. Chest clear. Abdomen soft. The patient has a scalp laceration. No evidence of bleeding. The patient had a stroke workup, including carotid ultrasound which shows 50% to 69% stenosis. At this point, the patient has no history of TIA, amaurosis fugax or any motor deficit. Discussed with the patient. Patient has no symptoms. No indication for surgical intervention. Will follow with you. MMTERRY / FRANKN: [id number] /
[2019-11-18] MEDS: CARVEDILOL 3.125 MG TAB PO SCH (07:43)
[2019-11-18] MEDS: LISINOPRIL 5 MG TAB PO SCH (07:43)
[2019-11-18] MEDS: CYANOCOBALAMIN 1,000 MCG/ML 1 ML VIAL IM SCH (07:43)
[2019-11-18] MEDS: PANTOPRAZOLE 40 MG TABLET PO SCH (07:43)
[2019-11-18] MEDS: FUROSEMIDE 80 MG TAB PO SCH (07:43)
[2019-11-18] MEDS: SYMBICORT 160-4.5 MCG INHALER INHALATION SCH (08:58)
[2019-11-18 11:23] LABS: INR 0.9 (<1.2); Prothrombin Time 9.4 sec (9.0-12.0)
[2019-11-18 11:25] LABS: Basophils % (A) 0 %; Eosinophils # (A) 0.3 k/uL (0-0.7); Eosinophils % (A) 4 %; HCT 33.2 % (34.0-46.0); HGB 10.8 gm/dL (11.4-16.0); Lymphocytes # (A) 1.5 k/uL (1.0-4.8); Lymphocytes % (A) 17 %; MCH 29.1 pg (25.0-35.0); MCHC 32.4 g/dL (31.0-37.0); MCV 89.6 fL (80.0-100.0); Mean Platelet Volume 7.4; Monocytes # (A) 0.5 k/uL (0-1.0); Monocytes % (A) 6 %; Neutrophils # (A) 6.2 k/uL (1.3-7.7); Neutrophils % (A) 71 %; Platelet Count 264 k/uL (150-450); RBC 3.71 m/uL (3.80-5.40); RDW 13.6 % (11.5-15.5); WBC 8.7 k/uL (3.8-10.6)
[2019-11-18 11:34] LABS: Calcium 9.5 mg/dL (8.4-10.2); Potassium 4.6 mmol/L (3.5-5.1)
--- NOTE | 2019-11-18 12:05 | P.DS ---
Providers Date of admission: 11/15/19 10:01 Expected date of discharge: 11/18/19 Attending physician: José Miguel Butts MD Consults: 11/15/19 12:00 Consult Physician Stat Consulting Provider: Jayla Suarez Consult Reason/Comments: New admit, subdural hematoma Do you want consulting provider notified?: Yes 11/15/19 15:44 Consult Physician Urgent Consulting Provider: Toby Crespo Consult Reason/Comments: subdural hematoma Do you want consulting provider notified?: Yes 11/15/19 15:45 Consult Physician Urgent Consulting Provider: Abhijit Finley Consult Reason/Comments: subdural hematoma/ INR/ bleeding Do you want consulting provider notified?: Yes 11/16/19 19:56 Consult Physician Routine Consulting Provider: Toñito Gilmore Consult Reason/Comments: carotid stenosis Do you want consulting provider notified?: Yes Primary care physician: Ashtyn Cano [facility] Course: Final diagnosis Fall with scalp injury with possible cerebral concussion No evidence of subdural hematoma. 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 Patient will follow-up with Dr. Cano upon discharge. Patient will continue to hold anticoagulation until follow-up with primary care provider, neurology, and vascular surgery. Total time taken is 35 minutes. History of present illness This is an 84-year-old female who was recently admitted with a fall and scalp injury suspected to have subdural hematoma initially and was being closely monitored. Patient underwent repeat CT showing bilateral encephalomalacia with prior infarcts and right posterior scalp hematoma. Patient was seen and evaluated by cardiology along with vascular surgery and recommending holding anticoagulation of Coumadin until follow-up with primary care provider. Patient will follow up with neurology along with vascular surgery in the outpatient setting. Patient continues to be quite weak with gait dysfunction and will be going to [facility] for continued PT/OT therapy. Currently no reports of chest pain, shortness of breath, or palpitations. Patient is afebrile. No reports of nausea or vomiting and patient is tolerating diet. Guarded prognosis. On exam vital signs are stable. Temp is 97.5 F, pulse is 72, respirations are 16, blood pressure is 133/53, oxygen saturation is 93 % on room air. Cardio S1, S2 are muffled. Respiratory shows diminished breath sounds at the bases with a few scattered rhonchi noted. Abdomen is soft and nontender. Nervous system shows mild diffuse weakness. Please refer to medication reconciliation sheet for a list of medications. Patient Condition at Discharge: Fair Plan - Discharge Summary Discharge Rx Participant: No New Discharge Prescriptions: Continue Acetaminophen Tab [Tylenol] 1,000 mg PO Q6HR PRN PRN Reason: Pain Or Fever > 100.5 Tussin Dm 10 ml PO Q4H PRN PRN Reason: Cough Nystatin 100,000Unit/gm Cream [Mycostatin Cream] 1 applic TOPICAL BID PRN PRN Reason: Rash Albuterol Nebulized [Ventolin Nebulized] 2.5 mg INHALATION RT-QID PRN PRN Reason: Shortness Of Breath Budesonide/Formoterol Fumarate [Symbicort 160-4.5 Mcg Inhaler] 2 puff INHALATION RT-BID@0700,1900 Pramipexole [Mirapex] 1 mg PO HS@1900 Oxybutynin ER [Ditropan Xl] 10 mg PO HS@1900 Lisinopril [Zestril] 5 mg PO DAILY@0700 Furosemide [Lasix] 80 mg PO DAILY@0700 Famotidine [Pepcid] 20 mg PO BID@0700,1900 Donepezil [Aricept] 5 mg PO HS@1900 Carvedilol [Coreg] 3.125 mg PO BID@0700,1900 Atorvastatin [Lipitor] 20 mg PO HS@1900 Aspirin EC [Ecotrin Low Dose] 81 mg PO DAILY@0700 Discontinued Warfarin [Coumadin] 5 mg PO MOTH@1900 Warfarin [Coumadin] 2.5 mg PO SUTUWEFRSA@1900 Discharge Medication List Acetaminophen Tab [Tylenol] 1,000 mg PO Q6HR PRN 11/15/19 [History] Albuterol Nebulized [Ventolin Nebulized] 2.5 mg INHALATION RT-QID PRN 11/15/19 [History] Aspirin EC [Ecotrin Low Dose] 81 mg PO DAILY@69911/15/19 [History] Atorvastatin [Lipitor] 20 mg PO HS@189911/15/19 [History] Budesonide/Formoterol Fumarate [Symbicort 160-4.5 Mcg Inhaler] 2 puff INHALATION RT-BID@699,189911/15/19 [History] Carvedilol [Coreg] 3.125 mg PO BID@699,189911/15/19 [History] Donepezil [Aricept] 5 mg PO HS@189911/15/19 [History] Famotidine [Pepcid] 20 mg PO BID@699,189911/15/19 [History] Furosemide [Lasix] 80 mg PO DAILY@69911/15/19 [History] Lisinopril [Zestril] 5 mg PO DAILY@69911/15/19 [History] Nystatin 100,000Unit/gm Cream [Mycostatin Cream] 1 applic TOPICAL BID PRN 11/15/19 [History] Oxybutynin ER [Ditropan Xl] 10 mg PO HS@189911/15/19 [History] Pramipexole [Mirapex] 1 mg PO HS@189911/15/19 [History] Tussin Dm 10 ml PO Q4H PRN 11/15/19 [History] Follow up Appointment(s)/Referral(s): Ashtyn Cano MD [Primary Care Provider] - 1-2 days Abhijit Finley MD [STAFF PHYSICIAN] - 1 Week Toñito Gilmore MD [STAFF PHYSICIAN] - 2 Weeks Cassie Peters MD [Medical Doctor] - 2 Weeks Patient Instructions/Handouts: Fall Prevention for Older Adults (DC), Staple Care (DC) Activity/Diet/Wound Care/Special Instructions: Per cardiology, discontinue coumadin Patient is going to [facility] . Cardiac diet Activity as tolerated, fall precautions, up with walker. Follow-up with vascular surgery in the outpatient setting Follow-up with neurology in the outpatient setting Discharge Disposition: TRANSFER TO SNF/F
[2019-11-18 15:36] VITALS: BP 122/58; PULSE 65; RESP 20; TEMP 97.8
== END 2019-11-18 16:26 | DRG 88 ==
LOC: EC 05:40 → 6NMEDSUR 10:01
PROVIDERS: ADMIT Internal Medicine; ATTEND Internal Medicine
PROC: 30233K1 Transfusion of Nonautologous Frozen Plasma into Peripheral Vein, Percutaneous Approach (ICD-10-PCS; principal; 2019-11-15)
PROC: 0HQ0XZZ Repair Scalp Skin, External Approach (ICD-10-PCS; 2019-11-15)
DX: S06.0X0A Concussion without loss of consciousness, initial encounter (principal); G93.41 Metabolic encephalopathy; I48.20 Chronic atrial fibrillation, unspecified; I69.351 Hemiplegia and hemiparesis following cerebral infarction affecting right dominant side; F03.90 Unspecified dementia, unspecified severity, without behavioral disturbance, psychotic disturbance, mood disturbance, and anxiety; G93.89 Other specified disorders of brain; I11.9 Hypertensive heart disease without heart failure; S01.01XA Laceration without foreign body of scalp, initial encounter; E78.5 Hyperlipidemia, unspecified; F32.9 Major depressive disorder, single episode, unspecified; G89.29 Other chronic pain; I65.23 Occlusion and stenosis of bilateral carotid arteries; I69.398 Other sequelae of cerebral infarction; J45.909 Unspecified asthma, uncomplicated; K21.9 Gastro-esophageal reflux disease without esophagitis; M48.02 Spinal stenosis, cervical region; N32.81 Overactive bladder; R79.1 Abnormal coagulation profile; I83.90 Asymptomatic varicose veins of unspecified lower extremity; M19.90 Unspecified osteoarthritis, unspecified site; R32 Unspecified urinary incontinence; I20.9 Angina pectoris, unspecified; R26.9 Unspecified abnormalities of gait and mobility; R07.9 Chest pain, unspecified; H91.90 Unspecified hearing loss, unspecified ear; R15.9 Full incontinence of feces; I95.1 Orthostatic hypotension; Z79.01 Long term (current) use of anticoagulants; Z79.51 Long term (current) use of inhaled steroids; Z79.82 Long term (current) use of aspirin; Z79.899 Other long term (current) drug therapy; Z88.5 Allergy status to narcotic agent; Z98.42 Cataract extraction status, left eye; Z98.41 Cataract extraction status, right eye; Z96.1 Presence of intraocular lens; Z82.3 Family history of stroke; Z82.49 Family history of ischemic heart disease and other diseases of the circulatory system; W01.190A Fall on same level from slipping, tripping and stumbling with subsequent striking against furniture, initial encounter; Y92.003 Bedroom of unspecified non-institutional (private) residence as the place of occurrence of the external cause
CPT/HCPCS: 12002; 36415; 70450; 71045; 72125; 80048; 80053; 81001; 82607; 82746; 85025; 85610; 85730; 86850; 86900; 86901; 90471; 90715; 93005; 93306; 93880; 94640; 99284